=== PATIENT | female | born 1955 | race Caucasian/White ===

== ENCOUNTER → 2016-08-17 | Outpatient (CLI) | payer OTHER ==
--- NOTE | 2016-08-17 13:49 | MR ---
MRI lower extremity, left knee History: Left knee pain. History of partial meniscectomy in January 2016. Comparison: September 2015 Technique: MRI was performed of the left knee using a [employer] system. Axial, sagittal, and camejo l images were obtained with standard imaging sequences. Findings: General: No significant joint effusion. No evidence for bone contusion or occult fracture. Ligaments and Tendons: Anterior cruciate and posterior cruciate ligaments are intact and unremarkable . Medial collateral ligament and pes anserinus is unremarkable. Minimal edema is seen at the iliotibi al band without attenuation. Fibular collateral ligament and biceps femoris is unremarkable. Popliteu s muscle and tendon is intact. Menisci and Cartilage: There has been partial resection of the previously discoid appearing lateral m eniscus and resection of the displaced bucket-handle tear. In the remaining meniscus there is abnorma l signal intensity extending to the superior articular surface and anterior horn and junction with th e body not seen previously. There is also horizontal tear in the posterior horn which extends to the superior articular surface near the free edge at the junction of the posterior horn and body. No sign ificant cartilage attenuation in the lateral compartment. No evidence for medial meniscal tear. No significant cartilage attenuation in the medial compartment. Extensor Mechanism: Patellofemoral cartilage is unremarkable. Quadriceps tendon and patellar tendon i s unremarkable. Impression: Partial meniscectomy lateral meniscus. Probable small upper surface tear versus less like ly scar at the junction anterior horn and body. There is also horizontal tear in the posterior horn v ersus scar extending to the superior articular surface at the junction with the body.
== END ==
LOC: FIMAGING 08:06
PROVIDERS: ATTEND Physical Medicine & Rehabilitation
DX: S83.207A Unspecified tear of unspecified meniscus, current injury, left knee, initial encounter (principal)

== ENCOUNTER → 2016-12-06 | Outpatient (CLI) | payer OTHER | LOC: BMCIMAGING 09:55 | PROVIDERS: ATTEND Internal Medicine | DX: Z12.39 Encounter for other screening for malignant neoplasm of breast (principal); N63 Unspecified lump in breast | CPT/HCPCS: G0204 ==